=== PATIENT | female | born 1990 | race Asian ===

== ENCOUNTER 2016-08-12 07:14 | Inpatient (IN) | payer MEDICAID, OTHER ==
[~2016-08-12] VITALS: Ht 154.9 cm; Wt 50.3 kg
[2016-08-12] VITALS (13 sets, daily range): BP systolic 96–118; BP diastolic 56–79
[2016-08-12] MEDS ORDERED: D5 LR IV SOLUTION 1,000 ML IV SCH (08:14)
[2016-08-12] MEDS ORDERED: MINERAL OIL CONCENTRATE 99.9% 15 ML UDC TOP PRN (08:15)
[2016-08-12 08:45] LABS: BASOPHILS % (AUTO) 0 % (0-10); EOSINOPHILS # (AUTO) 0.1 10^3/uL (0.0-0.3); EOSINOPHILS % (AUTO) 1 % (0-10); LYMPHOCYTES # (AUTO) 2.5 X 10^3 (1.0-4.0); LYMPHOCYTES % (AUTO) 32 % (12-44); MEAN CORPUSCULAR HEMOGLOBIN 29 PG (25-34); MEAN CORPUSCULAR HGB CONC 34 G/DL (32-36); MEAN CORPUSCULAR VOLUME 85 FL (80-99); MEAN PLATELET VOLUME 12.3 FL (7.4-10.4); MONOCYTES # (AUTO) 0.6 X 10^3 (0.0-1.0); MONOCYTES % (AUTO) 7 % (0-12); NEUTROPHILS # (AUTO) 4.8 X 10^3 (1.8-7.8); NEUTROPHILS % (AUTO) 60 % (42-75); PLATELET COUNT 130 10^3/uL (130-400); RED BLOOD COUNT 4.65 10^6/uL (4.35-5.85)
[2016-08-12 09:00] LABS: ALANINE AMINOTRANSFERASE 23 U/L (0-55); ALBUMIN 3.4 G/DL (3.2-4.5); ANION GAP 12 MMOL/L (5-14); ASPARTATE AMINO TRANSFERASE 22 U/L (5-34); BILIRUBIN,TOTAL 0.2 MG/DL (0.1-1.0); BLOOD UREA NITROGEN 12 MG/DL (7-18); BUN/CREATININE RATIO 20; CALCIUM 9.1 MG/DL (8.5-10.1); CARBON DIOXIDE 19 MMOL/L (21-32); CHLORIDE 107 MMOL/L (98-107); CREATININE SERUM 0.61 MG/DL (0.60-1.30); GFR ESTIMATED > 60; GLUCOSE 81 MG/DL (70-105); POTASSIUM 3.6 MMOL/L (3.6-5.0); SODIUM 138 MMOL/L (135-145); TOTAL PROTEIN 6.5 G/DL (6.4-8.2)
--- NOTE | 2016-08-12 09:52 | History & Physical-OB ---
OB - Chief Complaint & HPI Date Date of Admission: Date of Admission: 08/12/16 Chief Complaint/History OB-Reason for Admission/Chief: Rupture of Membranes Hx : 1 Hx Para: 0 Expected Date of Delivery: Aug 21, 2016 Gestational Age in Weeks: 38 Gestational Age in Days: 1 History of Labs O+ Pap neg Rubella immune HIV/RPR non-reactive Hepatitis B Ag reactive; Hep C neg; Hep B DNA quant 02/2016 146,990; IgM neg, IgG pos, Hep BeAg neg, Hep B surface Ab neg - consistent with chronic active Hep B; intermittent mild elevation of LFT, currently wnl 1h GTT abnormal 175, 3h GTT wnl GBS neg Allergies and Home Medications Allergies Coded Allergies: No Known Drug Allergies (Unverified , 08/12/16) OB - History Hx of Present Care: Yes Ultrasounds: Normal mid trimester US Obstetrical Complications: None Medical Complications: Other (Chronic Hepatitis B) Information Induced Hypertension: No Maternal Gestational Diabetes: No Hemorrhage: No Obstetrical History Hx : 1 Hx Para: 0 Patient Past Medical History Chronic Hepatitis B aquired at Social History/Family History HIV/AIDS: No Recent Infectious Disease Expo: No Sexually Transmitted Disease: No Alcohol Use: Denies Use Recreational Drug Use: No Immunizations Tetanus Booster (TDap): Less than 5yrs (06/06/16) Date of Influenza Vaccine: Mar 28, 2016 Rubella: immune RPR/VDRL: Negative GBS Status: Negative HBsAG: Positive OB - Admission Exam Physical Exam Abdomen: Gravid Cervical Dilatation: 3cm (3-4 on admission) Effacement: 75% Amniotic Fluid: Clear Accelerations: Accelerations Present Decelerations: No Decelerations Contractions on Admission: < 5 Minutes Apart Labs Laboratory Tests Test 08/12/16 08:30 Range/Units Alanine Aminotransferase (ALT/SGPT) 23 0-55 U/L Albumin 3.4 3.2-4.5 G/DL Alkaline Phosphatase 198 H 40-136 U/L Anion Gap 12 5-14 MMOL/L Aspartate Amino Transf (AST/SGOT) 22 5-34 U/L BUN/Creatinine Ratio 20 Basophils # (Auto) 0.0 0.0-0.1 10^3/uL Basophils (%) (Auto) 0 0-10 % Blood Urea Nitrogen 12 7-18 MG/DL Calcium Level 9.1 8.5-10.1 MG/DL Carbon Dioxide Level 19 L 21-32 MMOL/L Chloride Level 107 98-107 MMOL/L Creatinine 0.61 0.60-1.30 MG/DL Eosinophils # (Auto) 0.1 0.0-0.3 10^3/uL Eosinophils (%) (Auto) 1 0-10 % Estimat Glomerular Filtration Rate > 60 Glucose Level 81 70-105 MG/DL Hematocrit 40 35-52 % Hemoglobin 13.4 11.5-16.0 G/DL Lymphocytes # (Auto) 2.5 1.0-4.0 X 10^3 Lymphocytes (%) (Auto) 32 12-44 % Mean Corpuscular Hemoglobin 29 25-34 PG Mean Corpuscular Hemoglobin Concent 34 32-36 G/DL Mean Corpuscular Volume 85 80-99 FL Mean Platelet Volume 12.3 H 7.4-10.4 FL Monocytes # (Auto) 0.6 0.0-1.0 X 10^3 Monocytes (%) (Auto) 7 0-12 % Neutrophils # (Auto) 4.8 1.8-7.8 X 10^3 Neutrophils (%) (Auto) 60 42-75 % Platelet Count 130 130-400 10^3/uL Potassium Level 3.6 3.6-5.0 MMOL/L Red Blood Count 4.65 4.35-5.85 10^6/uL Red Cell Distribution Width 14.0 10.0-14.5 % Sodium Level 138 135-145 MMOL/L Total Bilirubin 0.2 0.1-1.0 MG/DL Total Protein 6.5 6.4-8.2 G/DL White Blood Count 8.0 4.3-11.0 10^3/uL OB - Assessment/Plan/Diagnosis Assessment Assessment: rupture of membranes Plan Plan: Expectant Management (augment if necessary) Other Plan Chronic Hepatitis B - baby will require HBIG and Hep B vaccine within 12 hours of delivery (nursery/pharmacy previously notified) YOUSIF CARRANZA DO Aug 12, 2016 09:52
[2016-08-12] MEDS ORDERED: fentaNYL INJECTION 100 MCG/2 ML AMP IV PRN (10:00)
[2016-08-12] MEDS ORDERED: LIDOCAINE 1% INJ 20 ML (XYLOCAINE) VIAL ONE (10:12)
[2016-08-12] MEDS ORDERED: OXYTOCIN (PITOCIN) 10 UNIT/ML VIAL ONE (10:12)
[2016-08-12] MEDS ORDERED: LIDOCAINE/EPI 1%-1:200,000 (XYLOCAINE) 30 ML VIAL ONE (10:13)
[2016-08-12] MEDS ORDERED: OXYTOCIN/NORMAL SALINE 500 ML IV ONE (10:15)
--- NOTE | 2016-08-12 12:16 | OB Labor & Delivery Record ---
Vag Delivery Note Vag Delivery Note Date of Delivery: 08/12/16 Preoperative Diagnosis: Jaye Lewis is a (25 /Para 1 / 0, Gestational Age (wks)38, 1 day Postoperative Diagnosis: Same Surgeon: YOUSIF CARRANZA Anesthesia: 1% Lidocaine w/ epi Delivery Type: Findings: Viable female , apgars 9, 10, weight 5#13, 2625g Lacerations: Bilateral periurethral, L vaginal side wall Intact placenta with 3 vessel cord. No nuchal cord, body cord or shoulder dystocia Estimated Blood Loss: 200 ml Complications: None Condition: Stable Description of Procedure: The patient is a who presented with SROM. She was admitted and informed consent was obtained. Her labor course was unremarkable. She progressed to complete dilatation without augmentation and began to push. She was then set up for delivery. The 's head was delivered atraumatically in the STEVEN position. The shoulders and remainder of the infant's body were then delivered without difficulty. Upon delivery, infant was placed on the maternal abdomen, infant was vigorous at . The cord was doubly clamped and cut. An intact placenta with 3-vessel cord delivered via Caleb and there was found to be minimal bleeding.~ Vigorous fundal massage was performed and the fundus was found to be firm. IV oxytocin was given. Examination of the vagina and perineum revealed bilateral periurethral abrasions with deeper laceration on the right which was repaired in the usual fashion with 3-0 vicryl suture. There continued to be steady bleeding vaginally though the uterus was firm. A righ angle retracter was used to assist in visualization of the cervix which was found to be without laceration or bleeding. A left vaginal side wall laceration was then identified as the source of bleeding and repaired in a running fashion with a 3-0 vicryl. There was good hemostasis. Following the repair, sponge, instrument and needle counts were correct. Mom and baby were both in stable condition in the labor suite. Vitals - Labs Labs Laboratory Tests 08/12/16 08:30: Alanine Aminotransferase (ALT/SGPT) 23, Albumin 3.4, Alkaline Phosphatase 198H, Anion Gap 12, Aspartate Amino Transf (AST/SGOT) 22, BUN/Creatinine Ratio 20, Basophils # (Auto) 0.0, Basophils (%) (Auto) 0, Blood Urea Nitrogen 12, Calcium Level 9.1, Carbon Dioxide Level 19L, Chloride Level 107, Creatinine 0.61, Eosinophils # (Auto) 0.1, Eosinophils (%) (Auto) 1, Estimat Glomerular Filtration Rate > 60, Glucose Level 81, Hematocrit 40, Hemoglobin 13.4, Lymphocytes # (Auto) 2.5, Lymphocytes (%) (Auto) 32, Mean Corpuscular Hemoglobin 29, Mean Corpuscular Hemoglobin Concent 34, Mean Corpuscular Volume 85, Mean Platelet Volume 12.3H, Monocytes # (Auto) 0.6, Monocytes (%) (Auto) 7, Neutrophils # (Auto) 4.8, Neutrophils (%) (Auto) 60, Platelet Count 130, Potassium Level 3.6, Red Blood Count 4.65, Red Cell Distribution Width 14.0, Sodium Level 138, Total Bilirubin 0.2, Total Protein 6.5, White Blood Count 8.0 YOUSIF CARRANZA DO Aug 12, 2016 12:16
[2016-08-12] MEDS ORDERED: OXYTOCIN/NORMAL SALINE 500 ML IV SCH (12:51)
[2016-08-12] MEDS ORDERED: WITCH HAZEL(TUCKS) 40 EA JAR ONE (12:55)
[2016-08-12] MEDS ORDERED: BENZOCAINE/MENTHOL (DERMOPLAST) 56 ML CAN TP ONE (12:55)
[2016-08-12] MEDS ORDERED: IBUPROFEN 600 MG (MOTRIN) TAB PO ONE (12:55)
[2016-08-12] MEDS: IBUPROFEN 600 MG (MOTRIN) TAB PO SCH ×2 (12:56→18:51)
[2016-08-12] MEDS: WITCH HAZEL(TUCKS) 40 EA JAR TOP PRN (12:57)
[2016-08-12] MEDS: BENZOCAINE/MENTHOL (DERMOPLAST) 56 ML CAN TP PRN (12:57)
[2016-08-12] MEDS ORDERED: HYDROcodone/APAP 5 MG/325 MG (LORTAB) TAB PO PRN (13:00)
[2016-08-12] MEDS ORDERED: CATHETER FLUSH 10 ML SYR IV SCH ×2 (14:00)
[2016-08-12] MEDS ORDERED: PNV91TAB3 PO (17:52)
[2016-08-13] MEDS: IBUPROFEN 600 MG (MOTRIN) TAB PO SCH ×4 (00:24→18:18)
[2016-08-13 00:30] VITALS: BP 91/60
[2016-08-13 06:14] LABS: BASOPHILS % (AUTO) 0 % (0-10); EOSINOPHILS # (AUTO) 0.1 10^3/uL (0.0-0.3); EOSINOPHILS % (AUTO) 1 % (0-10); LYMPHOCYTES # (AUTO) 3.1 X 10^3 (1.0-4.0); LYMPHOCYTES % (AUTO) 25 % (12-44); MEAN CORPUSCULAR HEMOGLOBIN 29 PG (25-34); MEAN CORPUSCULAR HGB CONC 34 G/DL (32-36); MEAN CORPUSCULAR VOLUME 86 FL (80-99); MEAN PLATELET VOLUME 12.2 FL (7.4-10.4); MONOCYTES # (AUTO) 0.8 X 10^3 (0.0-1.0); MONOCYTES % (AUTO) 7 % (0-12); NEUTROPHILS # (AUTO) 8.5 X 10^3 (1.8-7.8); NEUTROPHILS % (AUTO) 68 % (42-75); PLATELET COUNT 127 10^3/uL (130-400); RED BLOOD COUNT 4.28 10^6/uL (4.35-5.85); RED CELL DISTRIBUTION WIDTH 13.8 % (10.0-14.5); WHITE BLOOD COUNT 12.5 10^3/uL (4.3-11.0)
[2016-08-13 06:30] VITALS: BP 104/70
[2016-08-13 08:41] VITALS: BP 92/62
[2016-08-13 11:54] VITALS: BP 93/63
--- NOTE | 2016-08-13 12:19 | Progress Note (SOAP) ---
Subjective Subjective/Events-last exam Patient up walking around this AM. Tolerating PO diet. Pain is well controlled with PO medications Date seen by provider: Aug 13, 2016 Objective Exam Last Set of Vital Signs Vital Signs Date Time Temp Pulse Resp B/P Pulse Ox O2 Delivery O2 Flow Rate FiO2 08/13/16 11:54 97.2 89 18 93/63 100 Room Air Capillary Refill : General: Alert, Oriented X3, Cooperative Lungs: Clear to Auscultation, Normal Air Movement Heart: Regular Rate, Normal S1, Normal S2 Abdomen: Normal Bowel Sounds, Soft, No Tenderness Extremities: No Edema, No Tenderness/Swelling Psych/Mental Status: Mental Status NL, Mood NL Results/Procedures Lab Laboratory Tests 08/13/16 05:51: Basophils # (Auto) 0.0, Basophils (%) (Auto) 0, Eosinophils # (Auto) 0.1, Eosinophils (%) (Auto) 1, Hematocrit 37, Hemoglobin 12.3, Lymphocytes # (Auto) 3.1, Lymphocytes (%) (Auto) 25, Mean Corpuscular Hemoglobin 29, Mean Corpuscular Hemoglobin Concent 34, Mean Corpuscular Volume 86, Mean Platelet Volume 12.2H, Monocytes # (Auto) 0.8, Monocytes (%) (Auto) 7, Neutrophils # ( Auto) 8.5H, Neutrophils (%) (Auto) 68, Platelet Count 127L, Red Blood Count 4.28L, Red Cell Distribution Width 13.8, White Blood Count 12.5H Assessment/Plan Assessment/Plan Admission Dx Vaginal Delivery Plan 25 yo G1 now P1 that delivered Term female infant via , PDD #1 Plan - Good pain control via PO medications - Encourage ambulation - Hgb stable - Breast feeding infant well - Plan to d/c home tomorrow - f/u [address] Morales Diagnosis/Problems: Clinical Quality Measures DVT/VTE Risk/Contraindication: Risk Factor Score Per Nursin RFS Level Per Nursing on Admit: 1=Low/No VTE PPX WILLIS BETH MD Aug 13, 2016 12:19
[2016-08-13 16:47] VITALS: BP 99/63
[2016-08-13 20:35] VITALS: BP 95/61
[2016-08-14 00:45] VITALS: BP 102/72
[2016-08-14] MEDS: IBUPROFEN 600 MG (MOTRIN) TAB PO SCH ×3 (00:49→12:23)
[2016-08-14 08:00] VITALS: BP 102/68
[2016-08-14] MEDS ORDERED: IBUP-1773 PO (09:18)
--- NOTE | 2016-08-14 09:20 | Discharge Instructions ---
Discharge Inst-Women's Serv Depart Medications New, Converted or Re-Newed RX: Other (No new scripts) Final Diagnosis Spontaneous Vaginal Delivery Hep B + New Medications: Ibuprofen (Ibuprofen) 600 Mg Tablet 600 MG PO Q6H PRN PAIN #90 TAB Continued Medications: Pnv95/Ferrous Fumarate/FA ( [place]) 1 Each Tablet 1 EACH PO DAILY TAB Follow Up/Instructions Goal/Follow Up: You will need to make a 6 week follow up appt with Dr Carranza Patient Instructions: Please call if you have any questions regarding your baby Activity Activity: Activity as Tolerated Driving Instructions: You May Drive NO SMOKING: NO SMOKING Nothing Inside Vagina: No Douching, No [place], No Tampons Diet Discharge Diet: No Restrictions Return to The Hospital For: Severe bleeding Chest pain Shortness of breath Symptoms to Report to : Numbness/Tingling, Bleeding Excessive, Pain Increased, Fever Over 101 Degrees F, Vaginal Bleeding Increase, Nausea/Vomiting , Shortness of Breath For Any Problems or Questions: Contact Your Physician Skin/Wound Care Bathing Instructions: Shower Copies To 1: YOUSIF CARRANZA HOLLY R MD Aug 14, 2016 09:20
--- NOTE | 2016-08-14 09:21 | Discharge Summary ---
Diagnosis/Chief Complaint Date of Admission Aug 12, 2016 at 08:01 Date of Discharge 08/14/2016 Admission Diagnosis Admission Diagnosis Vaginal Delivery Discharge Diagnosis Vaginal Delivery of term female Hep B + serology Chief Complaint/HPI Chief Complaint/HPI Presented to L&D with ROM and proceeded to active labor. Discharge Summary-Simple/Stand Procedures of term female Consultations none Discharge Physical Examination Allergies: Coded Allergies: No Known Drug Allergies (Unverified , 08/12/16) Vitals & I&Os Vital Sign - Last 12Hours Date Time Temp Pulse Resp B/P Pulse Ox O2 Delivery O2 Flow Rate FiO2 08/14/16 08:00 98.6 75 18 102/68 100 Room Air General Appearance: Alert, Oriented X3, Cooperative, No Acute Distress HEENT: Atraumatic, PERRLA, EOMI, Mucous Memb Moist/[place] Respiratory: Clear to Auscultation, Normal Air Movement Cardiovascular: Regular Rate, Normal S1, Normal S2, No Murmurs Abdominal: Normal Bowel Sounds, Soft, No Tenderness, Other (Lochia less then period) Extremities: No Edema, No Tenderness/Swelling Skin: No Rashes, No Breakdown Neuro: Normal Gait, Normal Speech, Strength at 5/5 X4 Ext, Sensation Intact, Cranial Nerves 3-12 NL Psych/Mental Status: Mental Status NL, Mood NL Hospital Course See final discharge diagnosis. Pending Labs None Discussion & Recommendations 25 yo G1 now P1 that delivered term female via w/o complications Discharge Condition at discharge stable Instructions to patient/family Please see electonic discharge instructions given to patient. Discharge Medications Reviewed and agree with Discharge Medication list on patient's Discharge Instruction sheet Clinical Quality Measures DVT/VTE Risk/Contraindication: Risk Factor Score Per Nursin RFS Level Per Nursing on Admit: 1=Low/No VTE PPX Copy Copies To 1: YOUSIF CARRANZA HOLLY R MD Aug 14, 2016 09:21
[2016-08-14] MEDS: BENZOCAINE/MENTHOL (DERMOPLAST) 56 ML CAN TP PRN (12:23)
[2016-08-14] MEDS: WITCH HAZEL(TUCKS) 40 EA JAR TOP PRN (12:23)
== END 2016-08-14 12:25 | disposition home or self-care (01) | DRG 774 ==
LOC: LDRP 07:14 → WSo 07:14 → LDRP 08:01
PROVIDERS: ADMIT Family Medicine; ATTEND Family Medicine
PROC: 10E0XZZ Delivery of Products of Conception, External Approach (ICD-10-PCS; principal; 2016-08-12)
PROC: 0UQMXZZ Repair Vulva, External Approach (ICD-10-PCS; 2016-08-12)
PROC: 0UQGXZZ Repair Vagina, External Approach (ICD-10-PCS; 2016-08-12)
DX: O71.82 Other specified trauma to perineum and vulva (principal); O71.4 Obstetric high vaginal laceration alone; O98.42 Viral hepatitis complicating childbirth; Z37.0 Single live birth; Z3A.38 38 weeks gestation of pregnancy
CPT/HCPCS: 36415; 80053; 85025; 86850; 86900; 86901; 99212

== ENCOUNTER 2019-01-31 18:50 | Inpatient (IN) | payer OTHER ==
[~2019-01-31] VITALS: Ht 154.9 cm; Wt 49.0 kg
[2019-01-31] VITALS (7 sets, daily range): BP systolic 94–135; BP diastolic 57–74
[~2019-01-31 18:50] MED LIST: IBUP-1773 PO; PNV91TAB3 PO
--- NOTE | 2019-01-31 19:00 | NUR ---
BRYAN ANGELES presented to unit via ambulation from ED, accompanied by mother, child, mother in law, and father in law, with c/o contractions. BRYAN ANGELES weighed, gowned, voided, and to bed. EFHM and TOCO applied, VS taken. BRYAN ANGELES oriented to bed controls, call light, TV, heat, and A/C controls.
[2019-01-31 19:29] LABS: BILIRUBIN,URINE NEGATIVE (NEGATIVE); CLARITY,URINE CLEAR; COLOR,URINE YELLOW; GLUCOSE, URINE (UA) NEGATIVE (NEGATIVE); KETONES,URINE NEGATIVE (NEGATIVE); LEUKOCYTE ESTERASE ,URINE NEGATIVE (NEGATIVE); NITRITE,URINE NEGATIVE (NEGATIVE); PH,URINE 8 (5-9); PROTEIN,URINE NEGATIVE (NEGATIVE); UROBILINOGEN,URINE NORMAL (NORMAL)
[2019-01-31] MEDS ORDERED: D5 LR IV SOLUTION 1,000 ML IV ONE (19:36)
[2019-01-31] MEDS ORDERED: D5 LR IV SOLUTION 1,000 ML IV SCH (19:55)
[2019-01-31 20:00] LABS: BACTERIA,URINE FEW /HPF; WBC,URINE RARE /HPF
[2019-01-31] MEDS ORDERED: MINERAL OIL CONCENTRATE 99.9% 15 ML UDC TOP PRN (20:00)
[2019-01-31] MEDS ORDERED: CATHETER FLUSH 10 ML SYR IV PRN (20:00)
[2019-01-31 20:14] LABS: BASOPHILS % (AUTO) 0 % (0-10); EOSINOPHILS # (AUTO) 0.1 10^3/uL (0.0-0.3); EOSINOPHILS % (AUTO) 1 % (0-10); HEMATOCRIT 40 % (35-52); HEMOGLOBIN 13.2 G/DL (11.5-16.0); LYMPHOCYTES # (AUTO) 2.7 X 10^3 (1.0-4.0); LYMPHOCYTES % (AUTO) 31 % (12-44); MEAN CORPUSCULAR HEMOGLOBIN 27 PG (25-34); MEAN CORPUSCULAR HGB CONC 33 G/DL (32-36); MEAN CORPUSCULAR VOLUME 83 FL (80-99); MEAN PLATELET VOLUME 13.5 FL (7.4-10.4); MONOCYTES # (AUTO) 0.9 X 10^3 (0.0-1.0); MONOCYTES % (AUTO) 10 % (0-12); NEUTROPHILS % (AUTO) 58 % (42-75); PLATELET COUNT 124 10^3/uL (130-400); RED CELL DISTRIBUTION WIDTH 14.4 % (10.0-14.5); WHITE BLOOD COUNT 8.6 10^3/uL (4.3-11.0)
[2019-01-31] MEDS ORDERED: OXYTOCIN/NORMAL SALINE 500 ML IV ONE (21:32)
--- NOTE | 2019-01-31 22:11 | OB Labor & Delivery Record ---
Vag Delivery Note Vag Delivery Note Date of Delivery: 01/31/19 Preoperative Diagnosis: Jaye Lewis is a 28 /Para 2 / 1, Gestational Age (wks)38with 5 days Postoperative Diagnosis: Same Surgeon: HERVE MARTINEZ Anesthesia: None Delivery Type: Findings: Viable female , apgars 8/9, weight 6#2 Lacerations: none Intact placenta with 3 vessel cord. No nuchal cord, body cord or shoulder dystocia Estimated Blood Loss: 200 ml Complications: None Condition: Stable Description of Procedure: The patient is a 28 year old female who presented in active labor. She was admitted and informed consent was obtained. Her labor course was remarkable for precipitous course. I was called at 2134 and notified of AROM and dilation 7 cm, arrived at hospital at 2150, however she delivered at 2142 prior to my arrival. The was delivered spontaneously with complication with nursing staff present. The cord was doubly clamped and cut and the was handed off to the pediatric staff. After my arrival, an intact placenta with 3-vessel cord delivered via Caleb and there was found to be minimal bleeding.~ Vigorous fundal massage was performed and the fundus was found to be firm. IV oxytocin was given. Examination of the vagina and perineum revealed no lacerations. Following the delivery, sponge, instrument and needle counts were correct. Mom and baby were both in stable condition in the labor suite. Vitals - Labs Labs Laboratory Tests 01/31/19 19:15: Urine Color YELLOW, Urine Clarity CLEAR, Urine pH 8, Urine Specific [place] 1.010L, Urine Protein NEGATIVE, Urine Glucose (UA) NEGATIVE, Urine Ketones NEGATIVE, Urine Nitrite NEGATIVE, Urine Bilirubin NEGATIVE, Urine Urobilinogen NORMAL, Urine Leukocyte Esterase NEGATIVE, Urine RBC (Auto) NEGATIVE, Urine RBC NONE, Urine WBC RARE, Urine Squamous Epithelial Cells 2-5, Urine Crystals NONE, Urine Bacteria FEWH, Urine Casts NONE, Urine Mucus NEGATIVE, Urine Culture Indicated NO 01/31/19 19:50: White Blood Count 8.6, Red Blood Count 4.87, Hemoglobin 13.2, Hematocrit 40, Mean Corpuscular Volume 83, Mean Corpuscular Hemoglobin 27, Mean Corpuscular Hemoglobin Concent 33, Red Cell Distribution Width 14.4, Platelet Count 124L, Mean Platelet Volume 13.5H, Neutrophils (%) (Auto) 58, Lymphocytes (%) (Auto) 31, Monocytes (%) (Auto) 10, Eosinophils (%) (Auto) 1, Basophils (%) (Auto) 0, Neutrophils # (Auto) 5.0, Lymphocytes # (Auto) 2.7, Monocytes # (Auto) 0.9, Eosinophils # (Auto) 0.1, Basophils # (Auto) 0.0 HERVE MARTINEZ MD Jan 31, 2019 22:11
--- NOTE | 2019-01-31 22:15 | History & Physical-OB ---
OB - Chief Complaint & HPI Date/Time Date of Admission: Date of Admission: Jan 31, 2019 at 19:38 Date seen by a Provider: Jan 31, 2019 Time Seen by a Provider: 21:51 Chief Complaint/History OB-Reason for Admission/Chief: Onset of Labor Hx : 2 Hx Para: 1 Expected Date of Delivery: Feb 09, 2019 Gestational Age in Weeks: 38 Gestational Age in Days: 5 History of Labs O+, antibody neg, HIV/RPR NR. GC/chlamydia neg. Glucola normal. GBS neg. Hep B antigen POSITIVE. Allergies and Home Medications Allergies Coded Allergies: No Known Drug Allergies (Unverified , 08/12/16) Home Medications Pnv95/Ferrous Fumarate/FA 1 Each Tablet, 1 EACH PO DAILY, (Reported) Patient Home Medication List Home Medication List Reviewed: Yes OB - History Hx of Present Care: Yes Ultrasounds: Abnormal US findings (small size, concern for IUGR initial ultrasounds) Obstetrical Complications: None Medical Complications: Other (maternal chronic Hep B) Information Induced Hypertension: No Maternal Gestational Diabetes: No Hemorrhage: No Obstetrical History Hx : 2 Hx Para: 1 Hx # Term Pregnancies: 1 Hx # Pregnancies: 0 Number of Living Children: 1 Hx Termination: No Hx Multiple Gestation: No Hx Ectopic : No Hx Stillbirth: No Hx Complication: No Hx Induced Hypertens: No Hx Maternal Gestational Diabet: No Hx Hemorrhage: No Delivery History Hx Dystocia: No Hx Forceps Assisted Delivery: No Hx Vacuum Extraction Assisted: No Hx Placenta Abnormality: No Hx Distress: No Hx Large For Gestational Age I: No Hx Small for Gestational Age I: No Hx Section: No Hx Vaginal Delivery Post C-Sec: No Hx Blood Disorders: No Adverse Rxn to Tranfusion: No Patient Past Medical History Chronic Hepatitis B acquired at Social History/Family History HIV/AIDS: No Recent Infectious Disease Expo: No Sexually Transmitted Disease: No Alcohol Use: Denies Use Recreational Drug Use: No Immunizations Hepatitis A: No Hepatitis B: No Tetanus Booster (TDap): Less than 5yrs Rubella: immune RPR/VDRL: Negative GBS Status: Negative HBsAG: Positive OB - Admission Exam Physical Exam Abdomen: Non tender Cervical Dilatation: other (s/p delivery by time of my arrival, was 5 on arrival to L&D per nursing) Labs Laboratory Tests Test 01/31/19 19:15 01/31/19 19:50 Range/Units Urine Color YELLOW Urine Clarity CLEAR Urine pH 8 5-9 Urine Specific [place] 1.010 L 1.016-1.022 Urine Protein NEGATIVE NEGATIVE Urine Glucose (UA) NEGATIVE NEGATIVE Urine Ketones NEGATIVE NEGATIVE Urine Nitrite NEGATIVE NEGATIVE Urine Bilirubin NEGATIVE NEGATIVE Urine Urobilinogen NORMAL NORMAL MG/DL Urine Leukocyte Esterase NEGATIVE NEGATIVE Urine RBC (Auto) NEGATIVE NEGATIVE Urine RBC NONE /HPF Urine WBC RARE /HPF Urine Squamous Epithelial Cells 2-5 /HPF Urine Crystals NONE /LPF Urine Bacteria FEW H /HPF Urine Casts NONE /LPF Urine Mucus NEGATIVE /LPF Urine Culture Indicated NO White Blood Count 8.6 4.3-11.0 10^3/uL Red Blood Count 4.87 4.35-5.85 10^6/uL Hemoglobin 13.2 11.5-16.0 G/DL Hematocrit 40 35-52 % Mean Corpuscular Volume 83 80-99 FL Mean Corpuscular Hemoglobin 27 25-34 PG Mean Corpuscular Hemoglobin Concent 33 32-36 G/DL Red Cell Distribution Width 14.4 10.0-14.5 % Platelet Count 124 L 130-400 10^3/uL Mean Platelet Volume 13.5 H 7.4-10.4 FL Neutrophils (%) (Auto) 58 42-75 % Lymphocytes (%) (Auto) 31 12-44 % Monocytes (%) (Auto) 10 0-12 % Eosinophils (%) (Auto) 1 0-10 % Basophils (%) (Auto) 0 0-10 % Neutrophils # (Auto) 5.0 1.8-7.8 X 10^3 Lymphocytes # (Auto) 2.7 1.0-4.0 X 10^3 Monocytes # (Auto) 0.9 0.0-1.0 X 10^3 Eosinophils # (Auto) 0.1 0.0-0.3 10^3/uL Basophils # (Auto) 0.0 0.0-0.1 10^3/uL OB - Assessment/Plan/Diagnosis Assessment Assessment: active labor Admission Dx Active labor at full term 38 weeks gestation Chronic hepatitis B Admission Status: Inpatient Order (span 2 midnights) Reason for Inpatient Admission: Labor, delivery and course Plan Plan: Expectant Management HERVE MARTINEZ MD Jan 31, 2019 22:15
[2019-01-31] MEDS ORDERED: OXYTOCIN/NORMAL SALINE 500 ML IV SCH (22:25)
[2019-01-31] MEDS ORDERED: BENZOCAINE/MENTHOL (DERMOPLAST) 56 ML CAN TP PRN (22:30)
[2019-01-31] MEDS ORDERED: WITCH HAZEL(TUCKS) 40 EA JAR TOP PRN (22:30)
[2019-01-31] MEDS ORDERED: TETANUS,DIPTH,PERTUSS P/F (BOOSTRIX) 0.5 ML VIAL IM ONE (22:30)
[2019-01-31] MEDS ORDERED: MEASLES,MUMPS,RUBELLA 1 EA INJ SQ ONE (22:30)
[2019-01-31] MEDS: IBUPROFEN 600 MG (MOTRIN) TAB PO SCH (22:36)
--- NOTE | 2019-01-31 23:05 | NUR ---
Pt transferred to room via wheelchair with this RN, mother, and in crib at side. Pt oriented to new room. [place] and[place] given per request. Water without ice given. Pt denies any concerns at time.
[2019-02-01 00:40] VITALS: BP 99/66
[2019-02-01 04:25] VITALS: BP 88/60
[2019-02-01] MEDS: IBUPROFEN 600 MG (MOTRIN) TAB PO SCH ×3 (04:25→17:45)
[2019-02-01 05:37] LABS: BASOPHILS % (AUTO) 0 % (0-10); EOSINOPHILS % (AUTO) 0 % (0-10); HEMATOCRIT 38 % (35-52); HEMOGLOBIN 12.5 G/DL (11.5-16.0); LYMPHOCYTES # (AUTO) 2.7 X 10^3 (1.0-4.0); LYMPHOCYTES % (AUTO) 22 % (12-44); MEAN CORPUSCULAR HEMOGLOBIN 27 PG (25-34); MEAN CORPUSCULAR HGB CONC 33 G/DL (32-36); MEAN CORPUSCULAR VOLUME 83 FL (80-99); MONOCYTES % (AUTO) 8 % (0-12); NEUTROPHILS # (AUTO) 8.6 X 10^3 (1.8-7.8); NEUTROPHILS % (AUTO) 70 % (42-75); PLATELET COUNT 116 10^3/uL (130-400); RED CELL DISTRIBUTION WIDTH 14.5 % (10.0-14.5); WHITE BLOOD COUNT 12.4 10^3/uL (4.3-11.0)
[2019-02-01] MEDS: CATHETER FLUSH 10 ML SYR IV SCH (06:29)
--- NOTE | 2019-02-01 07:07 | Progress Note ---
Subjective Subjective/Events-last exam Afebrile, no acute events, denies pain,dizziness, shortness of breath. Objective Exam Last Set of Vital Signs Vital Signs Date Time Temp Pulse Resp B/P (MAP) Pulse Ox O2 Delivery O2 Flow Rate FiO2 02/01/19 04:25 98.2 65 18 88/60 (69) 98 Capillary Refill : I&O Intake and Output 02/01/19 00:00 Intake Total 850 ml Balance 850 ml Intake IV Total 850 ml Daily Weight Change No General: Alert, No Acute Distress Lungs: Clear to Auscultation, Normal Air Movement Heart: Regular Rate, No Murmurs Extremities: Other (fundus firm below umbilicus) Neuro: Normal Speech Psych/Mental Status: Mood NL Results/Procedures Lab Laboratory Tests 01/31/19 19:15: Urine Color YELLOW, Urine Clarity CLEAR, Urine pH 8, Urine Specific [place] 1.010L, Urine Protein NEGATIVE, Urine Glucose (UA) NEGATIVE, Urine Ketones NEGATIVE, Urine Nitrite NEGATIVE, Urine Bilirubin NEGATIVE, Urine Urobilinogen NORMAL, Urine Leukocyte Esterase NEGATIVE, Urine RBC (Auto) NEGATIVE, Urine RBC NONE, Urine WBC RARE, Urine Squamous Epithelial Cells 2-5, Urine Crystals NONE, Urine Bacteria FEWH, Urine Casts NONE, Urine Mucus NEGATIVE, Urine Culture Indicated NO 01/31/19 19:50: White Blood Count 8.6, Red Blood Count 4.87, Hemoglobin 13.2, Hematocrit 40, Mean Corpuscular Volume 83, Mean Corpuscular Hemoglobin 27, Mean Corpuscular Hemoglobin Concent 33, Red Cell Distribution Width 14.4, Platelet Count 124L, Mean Platelet Volume 13.5H, Neutrophils (%) (Auto) 58, Lymphocytes (%) (Auto) 31, Monocytes (%) (Auto) 10, Eosinophils (%) (Auto) 1, Basophils (%) (Auto) 0, Neutrophils # (Auto) 5.0, Lymphocytes # (Auto) 2.7, Monocytes # (Auto) 0.9, Eosinophils # (Auto) 0.1, Basophils # (Auto) 0.0 02/01/19 05:20: White Blood Count 12.4H, Red Blood Count 4.57, Hemoglobin 12.5, Hematocrit 38, Mean Corpuscular Volume 83, Mean Corpuscular Hemoglobin 27, Mean Corpuscular Hemoglobin Concent 33, Red Cell Distribution Width 14.5, Platelet Count 116L, Mean Platelet Volume 13.0H, Neutrophils (%) (Auto) 70, Lymphocytes (%) (Auto) 22, Monocytes (%) (Auto) 8, Eosinophils (%) (Auto) 0, Basophils (%) (Auto) 0, Neutrophils # (Auto) 8.6H, Lymphocytes # (Auto) 2.7, Monocytes # (Auto) 1.0, Eosinophils # (Auto) 0.0, Basophils # (Auto) 0.0 Assessment/Plan Assessment/Plan (1) Spontaneous vaginal delivery Status: Acute Assessment & Plan: Routine care Clinical Quality Measures DVT/VTE Risk/Contraindication: Risk Factor Score Per Nursin RFS Level Per Nursing on Admit: 1=Low/No VTE PPX HERVE MARTINEZ MD Feb 01, 2019 07:07
[2019-02-01 08:50] VITALS: BP 98/65
[2019-02-01] MEDS: PRENATAL VITAMIN 1 EA TAB PO SCH (10:04)
[2019-02-01] MEDS: DOCUSATE SODIUM 100 MG (COLACE) CAP PO SCH (10:04)
[2019-02-01 13:30] VITALS: BP 89/53
--- NOTE | 2019-02-01 14:10 | NUR ---
PT RESTING IN BED, DENIES ANY NEEDS AT THIS TIME.
[2019-02-01 17:43] VITALS: BP 100/62
--- NOTE | 2019-02-01 17:45 | NUR ---
PT IN BED, FAMILY AT THE BEDSIDE. VS OBTAINED. ROUTINE MOTRIN GIVEN PO; SEE EMAR FOR FURTHER. MORE PADS PROVIDED PER REQUEST. NO FURTHER NEEDS VOICED.
[2019-02-02] VITALS: BP 101/68
[2019-02-02] MEDS: DOCUSATE SODIUM 100 MG (COLACE) CAP PO SCH ×2 (00:03→07:34)
[2019-02-02] MEDS: IBUPROFEN 600 MG (MOTRIN) TAB PO SCH ×3 (00:03→11:52)
[2019-02-02] MEDS: CATHETER FLUSH 10 ML SYR IV SCH ×2 (00:13→06:09)
[2019-02-02 06:40] VITALS: BP 106/70
[2019-02-02] MEDS: PRENATAL VITAMIN 1 EA TAB PO SCH (07:34)
[2019-02-02 07:51] VITALS: BP 90/63
[2019-02-02 07:54] VITALS: BP 90/63
--- NOTE | 2019-02-02 08:28 | Discharge Inst-Women's Service ---
Discharge Inst-Women's Serv Depart Medication/Instructions Instructions may take 2-3 ibuprofen 200 mg [id number] every 6 hours as needed for cramps Problems Reviewed?: Yes Consults/Follow Up Additional Follow Up: Yes (with Dr. Lord in 6 weeks) Activity Activity: Activity as Tolerated Driving Instructions: No Driving for 1 Week Nothing Inside Vagina: No [place] (for 6 weeks) Diet Discharge Diet: Regular Diet Return to The Hospital For: as below Symptoms to Report to : Bleeding Excessive, Fever Over 101 Degrees F, Vaginal Discharge Foul For Any Problems or Questions: Contact Your Physician YANICK WONG MD Feb 02, 2019 08:28
--- NOTE | 2019-02-02 08:33 | Discharge Summary ---
Diagnosis/Chief Complaint Date of Admission Jan 31, 2019 at 19:38 Date of Discharge February 02, 2019 Admission Diagnosis Admission Diagnosis 1. Intrauterine at term 38 weeks 5 days gestation 2. Chronic hepatitis B Discharge Diagnosis 1. Intrauterine at term 38 weeks 5 days gestation 2. Chronic hepatitis B Problems/Diagnosis: (1) Spontaneous vaginal delivery Assessment & Plan: Routine care Status: Acute Discharge Summary-OBS Procedures 1. Spontaneous vaginal delivery Discharge Physical Examination Allergies: Coded Allergies: No Known Drug Allergies (Unverified , 08/12/16) Vitals & I&Os Vital Sign - Last 12Hours Date Time Temp Pulse Resp B/P (MAP) Pulse Ox O2 Delivery O2 Flow Rate FiO2 02/02/19 07:54 97.9 70 16 90/63 (72) 99 Room Air General Appearance: No Acute Distress Respiratory: Clear to Auscultation Abdominal: Soft (with uterus firm) Hospital Course Was the Problem List Reviewed?: Yes patient was admitted on January 31, 2019 in labor at 38 weeks 5 days gestation. She ultimately delivered on February 01, a term viable female. Infant received Apgars of 8 at 1 minute and 9 at 5 minutes. Mother underwent routine care orders. Hemoglobin was 12.5 in the morning of February 01. She was stable in the morning of February 02 and had no concerns. She was tolerating a regular diet. Mother was ambulatory and had no shortness of breath or leg pain Discharge Instructions to patient/family Please see electronic discharge instructions given to patient. Discharge Medications Reviewed and agree with Discharge Medication list on patient's Discharge Instruction sheet Clinical Quality Measures DVT/VTE Risk/Contraindication: Risk Factor Score Per Nursin RFS Level Per Nursing on Admit: 1=Low/No VTE PPX YANICK WONG MD Feb 02, 2019 08:33
--- NOTE | 2019-02-02 13:40 | NUR ---
Discharge to home - car seat in vehicle. Pt verbalized understanding.
== END 2019-02-02 13:40 | disposition home or self-care (01) | DRG 806 ==
LOC: LDRP 18:50 → WSo 18:50 → LDRP 19:38 → WSo 19:38 → WS 23:05
PROVIDERS: ADMIT Family Medicine; ATTEND Family Medicine
PROC: 10E0XZZ Delivery of Products of Conception, External Approach (ICD-10-PCS; principal; 2019-01-31)
DX: O62.3 Precipitate labor (principal); O98.42 Viral hepatitis complicating childbirth; B18.1 Chronic viral hepatitis B without delta-agent; Z3A.38 38 weeks gestation of pregnancy; Z37.0 Single live birth
CPT/HCPCS: 36415; 81000; 85025; 86850; 86900; 86901; 99212

== ENCOUNTER 2020-08-30 17:50 | Day surgery (SDC) | payer SELFPAY ==
[~2020-08-30] VITALS: Ht 153 cm; Wt 42.0 kg
--- NOTE | 2020-08-30 18:17 | ED GI ---
General Chief Complaint: Foreign Body Stated Complaint: FOOD BOLUS Nursing Triage Note: ARRIVED VIA AMB WITH COMPLAINTS OF A FISH BONE STUCK IN HER THROAT. STATES LIQUID WILL GO DOWN BUT IT IS VERY PAINFUL. Sepsis Screen: No Definite Risk Source of Information: Patient Exam Limitations: No Limitations History of Present Illness Date Seen by Provider: Aug 30, 2020 Time Seen by Provider: 18:00 Initial Comments Patient is a 29-year-old female who presents to the emergency department today with a chief complaint of concern for a fishbone stuck in her throat. Patient states that she was eating fish approximately 30 minutes prior to arrival when she swallowed and states that she feels like a bone got caught in her throat. Patient points to a level of discomfort at the sternal notch. Patient states that she has tried to drink behind the fishbone to alleviate her symptoms and has not had any relief. She tried water, Pepsi, oil. Nothing has made the discomfort any better. Patient states that it is sharp and very painful. She has never had an esophageal foreign body in the past. Patient has a negative past medical history, and negative past surgical history. She is not allergic to any medications. She is at present able to handle her own secretions. But she does state that it is quite painful to swallow. All other review of systems reviewed and negative except as stated. Timing/Duration: 1/2 Hour Severity/Quality: Moderate Radiation: No Radiation Activities at Onset: None Allergies and Home Medications Allergies Coded Allergies: No Known Drug Allergies (Unverified , 08/12/16) Home Medications Pnv95/Ferrous Fumarate/FA 1 Each Tablet, 1 EACH PO DAILY, (Reported) Patient Home Medication List Home Medication List Reviewed: Yes Review of Systems Review of Systems Constitutional: see HPI EENTM: Throat Pain Respiratory: No Symptoms Reported Cardiovascular: No Symptoms Reported Gastrointestinal: No Symptoms Reported Genitourinary: No Symptoms Reported Musculoskeletal: no symptoms reported Skin: no symptoms reported Psychiatric/Neurological: No Symptoms Reported Endocrine: No Symptoms Reported All Other Systems Reviewed Negative Unless Noted: Yes Past Kwzyxzh-Lbmqed-Wdkfvp Hx Patient Social History Alcohol Use: Denies Use Smoking Status: Never a Smoker Recent Infectious Disease Expo: No Recent Hopitalizations: No Seasonal Allergies Seasonal Allergies: No Past Medical History Surgeries: No Respiratory: No Cardiac: No Neurological: No Genitourinary: No Gastrointestinal: No Musculoskeletal: No Endocrine: No HEENT: No Cancer: No Psychosocial: No Integumentary: No Physical Exam Vital Signs Vital Signs - First Documented 08/30/20 17:55 Temp 36.4 Pulse 88 Resp 18 B/P (MAP) 121/81 (94) Pulse Ox 97 O2 Delivery Room Air Capillary Refill : Less Than 3 Seconds Height/Weight/BMI Height: '" Weight: lbs. oz. kg; 17.00 BMI Method: General Appearance: WD/WN, no apparent distress HEENT: other (erythema posterior pharynx, a little abraded) Respiratory: normal breath sounds, no respiratory distress, no accessory muscle use Cardiovascular: regular rate, rhythm Gastrointestinal: non tender, soft Extremities: normal inspection Neurologic/Psychiatric: alert, normal mood/affect, oriented x 3 Skin: normal color, warm/dry Progress/Results/Core Measures Results/Orders Lab Results Laboratory Tests Test 08/30/20 18:05 Range/Units Serum Test, Qualitative NEGATIVE NEGATIVE Micro Results Microbiology 08/30/20 MRSA Screen - Final, Complete MRSA not isolated My Orders Orders - ALFONSO YUSUF MD Soft Tissue Neck (08/30/20 18:17) Hcg,Qualitative Serum (08/30/20 18:34) Vital Signs/I&O 08/30/20 17:55 Temp 36.4 Pulse 88 Resp 18 B/P (MAP) 121/81 (94) Pulse Ox 97 O2 Delivery Room Air Blood Pressure Mean: 94 Departure Communication (Admissions) Time/Spoke to Admitting Phy: 18:[address] Valdivia who instructs to call in the OR team and he will take to endoscopy Impression Primary Impression: Foreign body in esophagus Qualified Codes: T18.108A - Unspecified foreign body in esophagus causing other injury, initial encounter Disposition: ADMITTED INPATIENT Condition: Stable Admissions Decision to Admit Reason: Admit from ER (General) Decision to Admit/Date: Aug 30, 2020 Time/Decision to Admit Time: 18:29 Departure-Patient Inst. Referrals: NO,LOCAL PHYSICIAN (PCP/Family) Primary Care Physician ALFONSO YUSUF MD Aug 30, 2020 18:16
--- NOTE | 2020-08-30 18:48 | Diagnostic Imaging Report ---
INDICATION: Fishbone foreign body. COMPARISON: None. EXAMINATION: Two soft tissue views of the neck. FINDINGS: Radiopaque foreign body within the cervical esophagus at the level of C6-C7. Tracheal air column is normal. Prevertebral soft tissue thickness is normal. IMPRESSION: Radiopaque foreign body in cervical esophagus. Dictated by: Dictated on workstation # [id number]
--- NOTE | 2020-08-30 19:00 | Consultation - Surgery ---
History of Present Illness History of Present Illness Patient Consulted On(jesús/time) 08/30/20 18:54 Date Seen by Provider: Aug 30, 2020 Time Seen by Provider: 18:55 History of Present Illness Seen and evaluated in ED. Consult requested for fish bone in esophagus. 29 female about an hr ago was eating fish. [place] sharp pain in throat. Can't get it to go away. Still with pain. Can take down some liquids, but has pain. Nothing makes better. Tried oil and pepsi without relief. Denies fever sweats chills shortness of breath or chest pain. X ray radiopaque foreign body in cervical esophagus. Allergies and Home Medications Allergies Coded Allergies: No Known Drug Allergies (Unverified , 08/30/20) Patient Home Medication List Home Medication List Reviewed: Yes Past Lglbmws-Dsgwyx-Qsbyas Hx Patient Social History Smoking Status: Never a Smoker Recent Hopitalizations: No Seasonal Allergies Seasonal Allergies: No Surgeries History of Surgeries: No Respiratory History of Respiratory Disorde: No Cardiovascular History of Cardiac Disorders: No Neurological History of Neurological Disord: No Genitourinary History of Genitourinary Disor: No Gastrointestinal History of Gastrointestinal Di: No Musculoskeletal History of Musculoskeletal Dis: No Endocrine History of Endocrine Disorders: No HEENT History of HEENT Disorders: No Cancer History of Cancer: No Psychosocial History of Psychiatric Problem: No Integumentary History of Skin or Integumenta: No Reviewed Nursing Assessment Reviewed/Agree w Nursing PMH: Yes Family Medical History Significant Family History: No Pertinent Family Hx Review of Systems-General Constitutional: No chills, No diaphoresis EENTM: throat pain; No ear pain, No blurred vision, No mouth pain Respiratory: No cough, No dyspnea on exertion Cardiovascular: No chest pain, No edema Gastrointestinal: No abdominal pain, No diarrhea Genitourinary: No decreased output, No discharge Musculoskeletal: No back pain, No joint pain Skin: No change in color, No change in hair/nails Psychiatric/Neurological: Denies Anxiety, Denies Depressed, Denies Emotional Problems All Other Systems Reviewed Negative Unless Noted: Yes (Negative excepted noted.) Physical Exam-General Problems Physical Exam Vital Signs Vital Signs - First Documented 08/30/20 17:55 Temp 36.4 Pulse 88 Resp 18 B/P (MAP) 121/81 (94) Pulse Ox 97 O2 Delivery Room Air Capillary Refill : Less Than 3 Seconds General Appearance: WD/WN, no apparent distress HEENT: PERRL/EOMI, normal ENT inspection Neck: non-tender, supple Respiratory: chest non-tender, no respiratory distress, no accessory muscle use Cardiovascular: regular rate, rhythm, no JVD Gastrointestinal: non tender, soft, no organomegaly Rectal: deferred Back: no CVA tenderness, no vertebral tenderness Extremities: non-tender, normal inspection Neurologic/Psychiatric: alert, normal mood/affect, oriented x 3 Skin: normal color, warm/dry Lymphatic: no adenopathy Data Review Labs Laboratory Tests 08/30/20 18:05: Assessment/Plan Assessment/Plan Assessment/Plan esophageal foreign body (fish bone) patient was discussed risks and benefits of EGD and understands risks and benefits and wishes to proceed NPO discussed needs intubated for airway protection also discussed possibility of not finding it. to or TRACY DOYLE DO Aug 30, 2020 19:00
[2020-08-30 19:10] VITALS: BP 121/81
[2020-08-30] MEDS ORDERED: fentaNYL INJECTION 100 MCG/2 ML AMP ONE (19:24)
[2020-08-30] MEDS ORDERED: ONDANSETRON 4 MG/2 ML (SDV) Z0FRAN ONE (19:46)
[2020-08-30] MEDS ORDERED: SUCCINYLCHOLINE INJ 100 MG/5 ML SYR/VIAL ONE (19:46)
[2020-08-30] MEDS ORDERED: SEVOFLURANE (ULTANE) 15 ML INHAL SOLN ONE (19:46)
[2020-08-30] MEDS ORDERED: proPOfol 200 MG/20 ML (DIPRIVAN) VIAL IV ONE (19:46)
[2020-08-30] MEDS ORDERED: MIDAZOLAM 2 MG/2 ML (VERSED) VIAL ONE (19:46)
[2020-08-30] MEDS ORDERED: LIDOCAINE PF 2% 5 ML (XYLOCAINE) VIAL ONE (19:46)
--- NOTE | 2020-08-30 20:16 | Progress Note-Post Operative ---
Post-Operative Progess Note Surgeon (s)/Dry Cleaner Hand (s) Surgeon TRACY DOYLE DO Dry Cleaner Hand: na Pre-Operative Diagnosis esophageal foreign body Post-Operative Diagnosis esophageal foreign body Procedure & Operative Findings Date of Procedure 08/30/20 Procedure Performed/Findings esophagogastroscopy c removal of cervical esophageal foreign body Anesthesia Type general Estimated Blood Loss Estimated blood loss (mL): none Specimens/Packing Specimens Removed na TRACY DOYLE DO Aug 30, 2020 20:16
--- NOTE | 2020-08-30 20:17 | Discharge Inst-Simple/Standard ---
Discharge Inst-Standard Patient Instructions/Follow Up Plan of Care/Instructions/FU: follow up on as needed basis. Activity as Tolerated: Yes Discharge Diet: Regular Diet TRACY DOYLE DO Aug 30, 2020 20:17
--- NOTE | 2020-08-30 20:37 | OPERATIVE REPORT ---
DATE OF SERVICE: 08/30/2020 PREOPERATIVE DIAGNOSIS: Esophageal foreign body. POSTOPERATIVE DIAGNOSIS: Esophageal foreign body. PROCEDURE: Esophagogastroscopy with removal of cervical esophageal foreign body. SURGEON: Tracy Valdivia DO ANESTHESIA: General. ESTIMATED BLOOD LOSS: None. COMPLICATIONS: None. INDICATIONS: The patient is a 29-year-old female who was eating fish soup when she started having severe pain in the upper esophagus. The patient had x-rays demonstrating cervical esophageal foreign body that was radiopaque. The patient was discussed risks and benefits of procedure and wished to proceed with procedure. Consent was signed in the chart. DESCRIPTION OF PROCEDURE: The patient was taken to the operating suite, the patient was intubated. Timeout was performed. Scope was inserted in mouth into the esophagus and in the proximal esophagus noting the foreign body with fish flesh and bone that was large. A Little Net was inserted and the flush portion of the foreign body was removed. The scope was reinserted into the proximal esophagus. Forceps were used to try to grasp the bone, it just rotated. The suction was then used to suction the bone into the channel and the bone was retrieved in the trap. Scope was then reinserted into the mouth, into the esophagus and into the stomach. Stomach had large food burden. Therefore, scope was then slowly retracted back, slowly through the entire esophagus. No other bone fragments or foreign body visualized. Scope was slowly retracted back until completely removed. The patient tolerated procedure well without any complications. She was taken to recovery room in stable condition. Job ID: [id number] DocumentID: [id number] Dictated Date: 08/30/2020 20:23:08 Firer Locomotive Crane Date: 08/30/2020 20:36:43 Dictated By: TRACY VALDIVIA DO
[2020-08-30] MEDS ORDERED: MEPERIDINE (DEMEROL) INJ 50 MG/ML IVP ONE (20:45)
[2020-08-30] MEDS ORDERED: fentaNYL INJECTION 100 MCG/2 ML AMP IVP ONE (20:45)
[2020-08-30] MEDS ORDERED: ONDANSETRON 4 MG/2 ML (SDV) Z0FRAN IVP PRN (20:45)
[2020-08-30] MEDS ORDERED: morphine INJ 10 MG/ML 1ML (SYR OR VIAL) IVP ONE (20:45)
== END 2020-08-30 22:40 ==
LOC: ER 17:53 → MERGE 18:42 → SDC 18:42
PROVIDERS: ATTEND Surgery
DX: T18.128A Food in esophagus causing other injury, initial encounter (principal); Z20.822 Contact with and (suspected) exposure to COVID-19
CPT/HCPCS: 43247; 70360; 84703 ×2; 87081; 99284; U0002; 36415; 87635

== ENCOUNTER 2022-06-07 16:57 | Inpatient (IN) | payer OTHER ==
[~2022-06-07] VITALS: Ht 162 cm; Wt 52.4 kg
[2022-06-07 17:30] VITALS: BP 109/79
[2022-06-07 17:59] LABS: BILIRUBIN,URINE NEGATIVE (NEGATIVE); CLARITY,URINE CLEAR; COLOR,URINE YELLOW; GLUCOSE, URINE (UA) NEGATIVE (NEGATIVE); KETONES,URINE NEGATIVE (NEGATIVE); LEUKOCYTE ESTERASE ,URINE NEGATIVE (NEGATIVE); NITRITE,URINE NEGATIVE (NEGATIVE); PH,URINE 6.5 (5-9); PROTEIN,URINE NEGATIVE (NEGATIVE)
[2022-06-07 18:00] VITALS: BP 106/72
[2022-06-07 18:06] LABS: BACTERIA,URINE NEGATIVE /HPF; SQUAMOUS EPITHELIAL CELL,UR 0-2 /HPF
[2022-06-07] MEDS ORDERED: MINERAL OIL 30 ML UDC TOP PRN (18:15)
[2022-06-07] MEDS ORDERED: D5 LR IV SOLUTION 1,000 ML IV SCH (18:15)
--- NOTE | 2022-06-07 18:25 | History & Physical-OB ---
OB - Chief Complaint & HPI Date/Time Date of Admission: Date of Admission: Jun 07, 2022 at 18:10 Date seen by a Provider: Jun 07, 2022 Time Seen by a Provider: 18:20 Chief Complaint/History OB-Reason for Admission/Chief: Onset of Labor Hx : 3 Hx Para: 2 Expected Date of Delivery: Jun 20, 2022 Gestational Age in Weeks: 38 Gestational Age in Days: 1 Admission Nurse Assessment Rev: Yes History of Labs Negative GBS perineal status Allergies and Home Medications Allergies Coded Allergies: No Known Drug Allergies (Unverified , 08/12/16) Patient Home Medication List Home Medication List Reviewed: Yes Pnv95/Ferrous Fumarate/FA ( [place]) 1 Each Tablet, 1 EACH PO DAILY, (Reported) Entered as Reported by: BENNY CRABTREE on 08/12/161751 OB - History Hx of Present Care: Yes Ultrasounds: Normal mid trimester US Obstetrical Complications: None Medical Complications: None Obstetrical History Hx Termination: No Hx Multiple Gestation: No Hx Stillbirth: No Hx Complication: No Hx Induced Hypertens: No Hx Maternal Gestational Diabet: No Delivery History Hx Dystocia: No Hx Large For Gestational Age I: No Hx Small for Gestational Age I: No Hx Section: No Hx Vaginal Delivery Post C-Sec: No Hx Blood Disorders: No Adverse Rxn to Tranfusion: No Patient Past Medical History Chronic Hepatitis B acquired at Immunizations Influenza Vaccine Up-to-Date: No; Not Current Hepatitis A: No Hepatitis B: No Tetanus Booster (TDap): Less than 5yrs OB - Admission Exam Physical Exam HEENT: Moist Membranes Heart: Rhythm Normal Lungs: Clear Abdomen: Gravid Cervical Dilatation: 8cm Effacement: 100% Station: -2 Membranes: Intact Heart Rate: 140's Accelerations: Accelerations Present Labs Laboratory Tests Test 06/07/22 17:27 Range/Units Urine Color YELLOW Urine Clarity CLEAR Urine pH 6.5 5-9 Urine Specific [place] <=1.005 1.016-1.022 Urine Protein NEGATIVE NEGATIVE Urine Glucose (UA) NEGATIVE NEGATIVE Urine Ketones NEGATIVE NEGATIVE Urine Nitrite NEGATIVE NEGATIVE Urine Bilirubin NEGATIVE NEGATIVE Urine Urobilinogen 0.2 < = 1.0 MG/DL Urine Leukocyte Esterase NEGATIVE NEGATIVE Urine RBC (Auto) NEGATIVE NEGATIVE Urine RBC NONE /HPF Urine WBC NONE /HPF Urine Squamous Epithelial Cells 0-2 /HPF Urine Renal Epithelial Cells NONE /HPF Urine Crystals NONE /LPF Urine Bacteria NEGATIVE /HPF Urine Casts NONE /LPF Urine Mucus NEGATIVE /LPF Urine Culture Indicated NO OB - Assessment/Plan/Diagnosis Assessment Assessment: active labor (at 38w 1 d) Admission Dx 1. IUP at term 38w1d Admission Status: Inpatient Order (span 2 midnights) Reason for Inpatient Admission: L&D Plan Plan: Other (eminent delivery) Discharge Diagnosis Diagnosis: Mother Hep B carrier. to have HBIG and hep B vaccine within 12 hours of YANICK WONG MD Jun 07, 2022 18:25
[2022-06-07 18:30] VITALS: BP 97/74
[2022-06-07] MEDS ORDERED: OXYTOCIN PRE-MIX DRIP 500 ML IV ONE (18:42)
[2022-06-07 18:55] LABS: BASOPHILS % (AUTO) 0 % (0-10); EOSINOPHILS % (AUTO) 0 % (0-10); HEMATOCRIT 41 % (35-52); HEMOGLOBIN 13.7 g/dL (11.5-16.0); LYMPHOCYTES # (AUTO) 2.2 10^3/uL (1.0-4.0); LYMPHOCYTES % (AUTO) 25 % (12-44); MEAN CORPUSCULAR HEMOGLOBIN 29 pg (25-34); MEAN CORPUSCULAR HGB CONC 33 g/dL (32-36); MEAN CORPUSCULAR VOLUME 86 fL (80-99); MONOCYTES # (AUTO) 0.6 10^3/uL (0.0-1.0); MONOCYTES % (AUTO) 7 % (0-12); NEUTROPHILS % (AUTO) 67 % (42-75); PLATELET COUNT 132 10^3/uL (130-400); WHITE BLOOD COUNT 8.8 10^3/uL (4.3-11.0)
[2022-06-07 18:58] VITALS: BP 109/79
[2022-06-07 19:00] VITALS: BP 117/73
--- NOTE | 2022-06-07 19:34 | OB Labor & Delivery Record ---
L&D History Date of Service Date of Service: Jun 07, 2022 History Expected Date of Delivery: Jun 20, 2022 Gestational Age in Weeks: 38 Hx : 3 Hx Para: 3 Complications Events: Routine care Operative Indications (Cesarea: N/A-Vaginal Delivery Intrapartal Events: None Other Complications mother Hep B carrier L&D Stage1 Stage One Onset of Labor - Date: Jun 07, 2022 Onset of Labor - Time: 16:00 Monitors and Tracing Monitor Mode: External Monitor Accelerations: Uniform Monitor Decelerations: Variable Station: -1 [place] [employer] Variability: Average (6-10) Short Term Variability: Present Presentation: Vertex Vital Signs VS - Last 72 Hours, by Label 06/07/22 06/07/22 06/07/22 06/07/22 17:30 18:00 18:30 18:58 Temp 36.2 36.3 Pulse 90 91 100 90 Resp 20 20 20 20 B/P (MAP) 109/79 (89) 106/72 (83) 97/74 (82) Pulse Ox 98 99 99 98 O2 Delivery Room Air Room Air Room Air Room Air 06/07/22 19:00 Pulse 73 Resp 20 B/P (MAP) 117/73 (88) O2 Delivery Room Air Signs of Distress by FHT Signs of Distress no Rupture of Membranes Spontaneous Ruture of Membrane: No Amniotic Membrane Rupture Time: 07:00 Amniotic Membrane Fluid Desc.: Clear Vaginal Bleeding Description: None L&D Stage2 Stage Two Stage II Date: Jun 07, 2022 Stage II Time: 19:15 Monitors and Tracing Monitor Mode: External Monitor Accelerations: Uniform Monitor Decelerations: Early Senior Care Variability: Average (6-10) Short Term Variability: Present Position: Left Occiput Anterior Presentation: Vertex Signs of Distress by FHT Signs of Distress no Cord Descript/Complications Cord Vessel Description: 3 Vessels Delivery Type Infant Delivery Method: Spontaneous Vaginal Anterior Shoulder: Left Episiotomy/Perineal Laceration Laceraction(s)/Extensions: No Condition of Delivery 1 minute Comment: 9 5 minute Comment: 9 Condition of Condition of Infant: Living Exam: No Observed Abnormalities Resuscitation Resuscitation: N/A - Spontaneous Resp L&D Stage3 Stage Three Stage III Date: Jun 07, 2022 Stage III Time: 19:20 Pictocin Pitocin ml/hr: 125 Placenta Delivery Placenta Delivery: Spontaneous Delivery Summary Summary Estimated blood loss (mL): 100 Condition of Delivery Examined: Cervix Examined Post Hemorrhage: No Intervention Required none YANICK WONG MD Jun 07, 2022 19:34
[2022-06-07] MEDS ORDERED: OXYTOCIN PRE-MIX DRIP 500 ML IV SCH (19:45)
[2022-06-07] MEDS ORDERED: WITCH HAZEL(TUCKS) 40 EA JAR TOP PRN (19:45)
[2022-06-07] MEDS ORDERED: MEASLES,MUMPS,RUBELLA 1 EA INJ SQ ONE (19:45)
[2022-06-07] MEDS ORDERED: NALOXONE 0.4 MG/ML 1 ML (NARCAN) VIAL IV PRN (19:45)
[2022-06-07] MEDS ORDERED: TETANUS,DIPTH,PERTUSS P/F (BOOSTRIX) 0.5 ML VIAL IM ONE (19:45)
[2022-06-07] MEDS ORDERED: BENZOCAINE/MENTHOL (DERMOPLAST) 56 ML CAN TP PRN (19:45)
[2022-06-07] MEDS: ACETAMINOPHEN 500 MG TAB (TYLENOL) PO SCH (21:44)
[2022-06-07] MEDS: IBUPROFEN 600 MG (MOTRIN) TAB PO SCH (21:44)
[2022-06-07] MEDS: DOCUSATE SODIUM 100 MG (COLACE) CAP PO SCH (21:46)
[2022-06-07] MEDS ORDERED: CATHETER FLUSH 10 ML SYR IV SCH (22:00)
[2022-06-07] MEDS: CATHETER FLUSH 10 ML SYR IV SCH (22:08)
[2022-06-08 01:00] VITALS: BP 94/61
[2022-06-08] MEDS: IBUPROFEN 600 MG (MOTRIN) TAB PO SCH ×3 (03:20→21:40)
[2022-06-08] MEDS: ACETAMINOPHEN 500 MG TAB (TYLENOL) PO SCH ×3 (03:20→21:40)
[2022-06-08 03:22] VITALS: BP 92/55
[2022-06-08] MEDS: CATHETER FLUSH 10 ML SYR IV SCH (05:55)
[2022-06-08 06:52] LABS: BASOPHILS % (AUTO) 0 % (0-10); EOSINOPHILS % (AUTO) 0 % (0-10); HEMOGLOBIN 12.6 g/dL (11.5-16.0); MEAN CORPUSCULAR HGB CONC 33 g/dL (32-36); MONOCYTES # (AUTO) 0.6 10^3/uL (0.0-1.0); MONOCYTES % (AUTO) 5 % (0-12)
[2022-06-08 06:54] LABS: HEMATOCRIT 38 % (35-52); LYMPHOCYTES # (AUTO) 3.1 10^3/uL (1.0-4.0); LYMPHOCYTES % (AUTO) 29 % (12-44); MEAN CORPUSCULAR HEMOGLOBIN 28 pg (25-34); MEAN CORPUSCULAR VOLUME 85 fL (80-99); NEUTROPHILS # (AUTO) 7.1 10^3/uL (1.8-7.8); NEUTROPHILS % (AUTO) 65 % (42-75); PLATELET COUNT 121 10^3/uL (130-400); WHITE BLOOD COUNT 10.9 10^3/uL (4.3-11.0)
[2022-06-08 07:00] LABS: SMEAR SCAN COMMENT YES
[2022-06-08 07:50] VITALS: BP 90/53
[2022-06-08 15:27] VITALS: BP 98/62
--- NOTE | 2022-06-08 20:30 | Progress Note ---
Subjective Subjective/Events-last exam No current complaints. Minimal vaginal bleeding or cramping. Objective Exam Last Set of Vital Signs Vital Signs Date Time Temp Pulse Resp B/P (MAP) Pulse Ox O2 Delivery O2 Flow Rate FiO2 06/08/22 15:27 36.5 84 18 98/62 (74) Room Air 06/08/22 07:50 98 Capillary Refill : Less Than 3 Seconds General: Alert, Oriented X3 Lungs: Clear to Auscultation Heart: Regular Rate Abdomen: Soft (with uterus firm) Results/Procedures Lab Laboratory Tests 06/08/22 06:41: White Blood Count 10.9, Red Blood Count 4.44, Hemoglobin 12.6, Hematocrit 38, Mean Corpuscular Volume 85, Mean Corpuscular Hemoglobin 28, Mean Corpuscular Hemoglobin Concent 33, Red Cell Distribution Width 13.6, Platelet Count 121L, Mean Platelet Volume 12.0, Immature Granulocyte % (Auto) 0, Neutrophils (%) (Auto) 65, Lymphocytes (%) (Auto) 29, Monocytes (%) (Auto) 5, Eosinophils (%) (Auto) 0, Basophils (%) (Auto) 0, Neutrophils # (Auto) 7.1, Lymphocytes # (Auto) 3.1, Monocytes # (Auto) 0.6, Eosinophils # (Auto) 0.0, Basophils # (Auto) 0.0, Immature Granulocyte # (Auto) 0.0, Percent Immature Platelet Fraction 7.2, Smear Scan YES Microbiology 06/07/22 Urine Culture - Final, Complete Gram Pos Mixed Bacterial Natalie Assessment/Plan Assessment/Plan Admission Dx 1. IUP at term 38 weeks--delivered Admission Status: Inpatient Order (span 2 midnights) Assessment & Plan 1. IUP at term 38 weeks--delivered -routine PP care orders -plan on home in the am of 06/09 YANICK WONG MD Jun 08, 2022 20:30
[2022-06-08] MEDS: DOCUSATE SODIUM 100 MG (COLACE) CAP PO SCH (21:40)
[2022-06-08 21:41] VITALS: BP 98/60
[2022-06-09 03:42] VITALS: BP 99/65
[2022-06-09] MEDS: ACETAMINOPHEN 500 MG TAB (TYLENOL) PO SCH (04:10)
[2022-06-09] MEDS: IBUPROFEN 600 MG (MOTRIN) TAB PO SCH (04:10)
--- NOTE | 2022-06-09 08:07 | Discharge Inst-Women's Service ---
Discharge Inst-Women's Serv Depart Medication/Instructions New, Converted or Re-Newed RX: Other Instructions May take ibuprofen 200 mg hlih-uik-cibzgnh tablets and take 2 or 3 every 6 hours if needed for cramps. Problems Reviewed?: Yes Consults/Follow Up Additional Follow Up: Yes (with Dr. Denice mitchell 6 weeks.) Activity Activity: Activity as Tolerated Driving Instructions: No Driving for 1 Week Nothing Inside Vagina: No [place] (for 6 weeks) Diet Discharge Diet: Regular Diet Return to The Hospital For: as below Symptoms to Report to : Bleeding Excessive, Fever Over 101 Degrees F, Vaginal Discharge Foul For Any Problems or Questions: Contact Your Physician YANICK WONG MD Jun 09, 2022 08:07
[2022-06-09 08:10] VITALS: BP 96/65
--- NOTE | 2022-06-09 08:11 | Discharge Summary ---
Diagnosis/Chief Complaint Date of Admission Jun 07, 2022 at 18:10 Date of Discharge June 09, 2022 Admission Diagnosis Admission Diagnosis 1 Intrauterine at 38 weeks gestation Discharge Diagnosis 1. Intrauterine at 38 weeks gestation 2. Chronic hepatitis B carrier Chief Complaint/HPI Chief Complaint/HPI 31-year-old 2 now term to L2 who presented to labor and delivery during the evening of June 07, 2022 in active labor. She presented at 8 cm dilated with membranes intact. Her GBS status was negative. She is known to be hepatitis B carrier since . Discharge Summary-OBS Procedures 1. Spontaneous vaginal delivery Discharge Physical Examination Allergies: Coded Allergies: No Known Drug Allergies (Unverified , 08/12/16) Vitals & I&Os Vital Sign - Last 12Hours Date Time Temp Pulse Resp B/P (MAP) Pulse Ox O2 Delivery O2 Flow Rate FiO2 06/09/22 03:42 36.2 63 18 99/65 (76) 99 Room Air General Appearance: No Acute Distress Respiratory: Clear to Auscultation Cardiovascular: Regular Rate Abdominal: Normal Bowel Sounds Hospital Course Was the Problem List Reviewed?: Yes patient was admitted during the evening of June 07, 2022 in active labor. She underwent amniotomy with amnio hook. She subsequently went on to completion and delivered over a intact perineum a term viable male. was given Apgars of 9 at 1 minute and 9 at 5 minutes She hadno issues with placental delivery. Bleeding was minimal at 100 cc. There was no perineal lacerations. Following delivery she underwent routine care orders. She had no complications during the remainder of hospital stay. Her hemoglobin in the morning of June 08 was 12.6 compared to admission of 13.7. She denied any chest pain or leg pain. She was felt ready for dismissal on the morning of June 09, 2022. She will follow-up with Dr. Galdamez in 6 weeks for check Labs Microbiology 06/07/22 Urine Culture - Final, Complete Gram Pos Mixed Bacterial Natalie Discharge Instructions to patient/family Please see electronic discharge instructions given to patient. Discharge Medications Reviewed and agree with Discharge Medication list on patient's Discharge Instruction sheet YANICK WONG MD Jun 09, 2022 08:11
== END 2022-06-09 10:50 | disposition home or self-care (01) | DRG 806 ==
LOC: WSo 16:57 → LDRP 16:58 → WSo 18:08 → LDRP 18:10
PROVIDERS: ADMIT Family Medicine; ATTEND Family Medicine
PROC: 10E0XZZ Delivery of Products of Conception, External Approach (ICD-10-PCS; principal; 2022-06-07)
DX: O98.42 Viral hepatitis complicating childbirth (principal); B18.1 Chronic viral hepatitis B without delta-agent; Z37.0 Single live birth; Z3A.38 38 weeks gestation of pregnancy
CPT/HCPCS: 36415; 81000; 85025; 86780; 86850; 86900; 86901; 87088; 99212